=== PATIENT | female | born 1995 | race Caucasian/White ===

== ENCOUNTER → 2022-02-14 | Outpatient (REF) ==
[2022-02-17 14:08] LABS: RUBEOLA IgG ANTIBODY 97.7 AU/mL (Immune >16.4)
== END ==
LOC: M LAB 15:12
PROVIDERS: ATTEND Nurse Practitioner Adult Health
DX: Z00.00 Encounter for general adult medical examination without abnormal findings (principal)

== ENCOUNTER 2022-06-24 11:38 | Emergency (ER) | payer MEDICAID, OTHER ==
[~2022-06-24] VITALS: Ht 160 cm; Wt 65.6 kg
[2022-06-24] MEDS ORDERED: TRAZ-252 PO (12:15)
[2022-06-24] MEDS ORDERED: DULO1CAP6 PO (12:15)
[2022-06-24] MEDS ORDERED: DULoxetine 30MG CAPSULE (CYMBALTA) PO STA (12:48)
[2022-06-24] MEDS ORDERED: METOCLOPRAMIDE INJ 10MG/2ML VIAL (J2765 PER 1) IM ONE (13:50)
[2022-06-24] MEDS ORDERED: KETOROLAC 30 MG/ML 1ML VIAL IM ONE (13:50)
[2022-06-24] MEDS ORDERED: TRAZ1TAB10 PO (15:21)
[2022-06-24] MEDS ORDERED: CYMB60CA4 PO (15:21)
[2022-06-24 15:50] VITALS: BP 127/79
== END 2022-06-24 15:53 | disposition home or self-care (01) ==
LOC: EEVIPCON 11:38 → M ED 11:38
DX: G47.00 Insomnia, unspecified (principal); Z76.0 Encounter for issue of repeat prescription; R44.3 Hallucinations, unspecified; R51.9 Headache, unspecified; G89.4 Chronic pain syndrome; Z88.0 Allergy status to penicillin; Z91.011 Allergy to milk products; Z91.018 Allergy to other foods; Z79.899 Other long term (current) drug therapy
CPT/HCPCS: 96372; 99284; J1885; J2765

== ENCOUNTER → 2023-06-10 | Outpatient (REF) ==
[~2023-06-10] MED LIST: CYMB60CA4 PO; DULO1CAP6 PO; TRAZ-252 PO; TRAZ1TAB10 PO
== END ==
LOC: M EMP 08:41
PROVIDERS: ATTEND Family Medicine
DX: Z11.52 Encounter for screening for COVID-19 (principal)